=== PATIENT | male | born 2000 | race Caucasian/White ===

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

== ENCOUNTER 2022-12-06 16:09 | Inpatient (IN) ==
--- NOTE | 2022-12-06 16:39 | Emergency Department Note ---
Impression & Plan Suicidal ideations, Mood disorder ED Provider Note NAME: MARILOU NGUYEN AGE: 22 SEX: M : 2000 ARRIVES VIA: Walk-In INFORMANT: Patient ED PROVIDER(S): Niko Ramirez DO CHIEF COMPLAINT: Depression and suicidal thoughts HPI: Patient is a 22-year-old male who presents to the ER with a past medical history of depression. Prior to COVID he is to see a psychiatrist. He has not been following with them or taking anything since then. He notes that he came back to school and since June he has been spiraling. He has been feeling very depressed. He is now having suicidal thoughts which are passive. He saw 3 different ways to kill himself but notes he would not do any of them as they are too messy. He would never stab himself or shoot himself with a gun but has thought through doing all this. Denies any auditory visual hallucinations. He notes he has no desire to live anymore. PAST MEDICAL HISTORY:See Below PAST SURGICAL HISTORY:See Below FAMILY HISTORY:See Below SOCIAL HISTORY:See Below HOME MEDICATIONS:See Below ALLERGIES:See Below VITALS:See Below PHYSICAL EXAMINATION: GENERAL: Sitting up in bed, alert, well appearing, well nourished, no distress, non-toxic EYE EXAM: normal conjunctiva. OROPHARYNX: mucous membranes are moist NECK: supple, no nuchal rigidity, no adenopathy, non-tender LUNGS: Clear to auscultation. Normal chest wall mechanics HEART: no murmurs, S1 normal and S2 normal ABDOMEN: abdomen soft, non-tender, normo-active bowel sounds, no masses, no rebo und or guarding. UPPER EXTREMITIES: upper extremities are grossly normal. LOWER EXTREMITIES: No pitting edema. NEURO EXAM: Normal sensorium, cranial nerves II-XII grossly intact, normal speech, no gross weakness of arms, no gross weakness of legs. PSYCH: Admits to passive suicidal thoughts and denies any auditory visual hallucinations. MEDICAL DECISION MAKING: Patient is a 22-year-old male who presents ER for suicidal thoughts. Admits to feeling depressed and hopeless. Blood work is obtained and showed no significant leukocytosis or anemia. BMP along with LFTs bilirubin and TSH was unremarkable. UA was clean. Tox was positive for marijuana. COVID-negative. Alcohol negative. I discussed the case with her psychiatric acute care physical therapist. Patient was independently seen and evaluated by them. They agree as well as I do that this patient needs inpatient treatment. Patient was agreeable. We consulted [facility] and the liaison evaluated the patient and patient was admitted to their service for further psychiatric evaluation and treatment. ED observation: The patient was placed in observation status at 1640. Psychiatric evaluation and placement. During the time in observation, the patient was frequently reassessed and accepted to psychiatry following evaluations by her psychiatric care managers in [facility] On Final reassessment the patient patient is medically stable and the patient will be discharged at this time. A total observation time of 4 hours and 20 minutes. Triage Nursing notes reviewed. Limited review of prior medical records performed Vital Signs: reviewed and remarkable for no significant abnormalities Differential diagnosis: Mood disorder, infection, hypoglycemia, electrolyte abnormalities, cardiac sources, intracerebral event, toxicologic, trauma, neurologic, as well as other pathologies. ER treatment provided: See below Diagnostics interpreted by me include EKG and cardiac monitoring as listed below: -ECG: none -Laboratory studies:Interpreted by me as stated above in MDM and shown below. Imaging studies: Xrays: As interpreted by me:none CTs show: none Consultation(s): Discussed with our psychiatric acute care physical therapist as well as [facility]. who evaluate the patient admit them for further work-up Procedures:none Critical Care: None Past Med/Surg History Social History Smoking Status: Current every day smoker Tobacco Type: E-cigarettes / Vaping Preferred Language: British Communication Ability: Effective Range Conservationist Required: No Beliefs That Will Affect Care: None Feels Safe at Home: Yes Gender Identity: Male Assistive Devices: Glasses Allergies Allergies Allergy/AdvReac Type Severity Reaction Status Date / Time No Known Allergies Allergy Verified 12/06/22 16:33 Home Meds Home Medications Medication Instructions Recorded Confirmed buspirone 30 mg tablet 30 mg PO DAILY 12/06/22 12/06/22 venlafaxine 150 mg 150 mg PO DAILY 12/06/22 12/06/22 capsule,extended release 24 hr Results & Data (ED) Vital Signs Vital Signs - 24 hr 12/06/22 16:13 12/06/22 18:10 12/06/22 19:26 Temperature 36.3 C L Temperature Source Temporal Artery Scan Pulse Rate 78 Pulse Rate [Finger] 67 72 Pulse Rhythm Regular Pulse Strength Normal Respiratory Rate 20 14 20 Respiratory Effort / Characteristics Non-Labored Spontaneous Respiratory Depth Normal Respiratory Pattern Regular Blood Pressure 193/131 H Blood Pressure [Right Arm] 154/108 H 171/117 H Blood Pressure Mean 151 Blood Pressure Mean [Right Arm] 123 135 Blood Pressure Position Sitting Pulse Oximetry 96 97 97 Oxygen Delivery Method Room Air Room Air Room Air Sepsis Recent Fever Within 48 Hours No Sepsis New/Unexplained Change in Mental Status N/A Sepsis Action Taken by Nursing No Action Required Laboratory Data 12/06/22 17:09 12/06/22 17:09 Lab Results 12/06/22 12/06/22 12/06/22 Range/Units 16:43 16:43 16:54 WBC (4.8-10.8) K/ul RBC (4.70-6.10) M/uL Hgb (14.0-18.0) g/dl Hct (42.0-52.0) % MCV (80.0-100.0) fL MCH (25.0-34.0) pg MCHC (32.0-36.0) g/dL RDW Std Deviation (36.4-46.3) fL RDW Coeff of Negra (11.5-14.5) % Plt Count (130-400) K/uL MPV (9.4-12.4) fL Immature Gran % (Auto) % Neut % (Auto) % Lymph % (Auto) % [place] % (Auto) % Eos % (Auto) % Baso % (Auto) % Neut # (Auto) (1.40-6.50) K/uL Lymph # (Auto) (1.2-3.4) K/uL [place] # (Auto) (0.11-0.59) K/uL Eos # (Auto) (0-0.50) K/uL Baso # (Auto) (0-0.2) K/uL Immature Gran # (Auto) (0.01-0.20) K/uL Sodium (136-145) mmol/L Potassium (3.5-5.1) mmol/L Chloride (98-107) mmol/L Carbon Dioxide (21-32) mmol/L Anion Gap (3-11) BUN (6-23) mg/dl Creatinine (0.6-1.4) mg/dl Est Cr Clr Drug Dosing ml/min Est GFR ( Amer) ml/min Est GFR (Non-Af Amer) ml/min BUN/Creatinine Ratio (10-20) Glucose (70-99(Fasting)) mg/dl Calcium (8.5-10.1) mg/dl Total Bilirubin (0.2-1.0) mg/dl AST (13-39) U/L ALT (7-52) U/L Alkaline Phosphatase (34-104) U/L Total Protein (6.0-8.3) gm/dl Albumin (3.4-5.0) gm/dl Globulin (2.5-4.0) gm/dl Albumin/Globulin Ratio (0.9-2) TSH (0.300-4.500) uIu/ml Urine Color Yellow Urine Appearance Clear (Clear) Urine pH 7.0 (4.5-7.5) Ur Specific [place] 1.018 (1.000-1.030) Urine Protein Negative (Negative) Urine Glucose (UA) Negative (Negative) Urine Ketones Negative (Negative) Urine Blood Trace H (Negative) Urine Nitrite Negative (Negative) Urine Bilirubin Negative (Negative) Urine Urobilinogen Negative (Negative) Ur Leukocyte Esterase Negative (Negative) Urine WBC (Auto) 1-5 (0-5) /hpf Urine RBC (Auto) 0-4 (0-4) /hpf U Hyaline Cast (Auto) 1-5 (0-5) /lpf U Epithel Cells (Auto) 5-10 H (0-5) /lpf Urine Bacteria (Auto) Negative (Negative) Salicylates (3.0-30) mg/dl Urine Opiates Screen Neg (Neg) Ur Methadone, Qual Neg (Neg) Acetaminophen (10-30) ug/ml Urine Barbiturates Neg (Neg) Ur Phencyclidine (PCP) Neg (Neg) U Amphetamin/Meth Scrn Neg (Neg) MDMA (Ecstasy) Screen Neg (Neg) U Benzodiazepines Scrn Neg (Neg) Ur Cocaine Metabolite Neg (Neg) U Marijuana (THC) Screen Pos H (Neg) Ethyl Alcohol mg/dL (<10.0) mg/dl SARS-CoV-2, RNA, NAAT NEGATIVE (NEGATIVE) 12/06/22 12/06/22 12/06/22 Range/Units 17:09 17:09 17:09 WBC 5.84 (4.8-10.8) K/ul RBC 5.39 (4.70-6.10) M/uL Hgb 15.6 (14.0-18.0) g/dl Hct 44.7 (42.0-52.0) % MCV 82.9 (80.0-100.0) fL MCH 28.9 (25.0-34.0) pg MCHC 34.9 (32.0-36.0) g/dL RDW Std Deviation 37.5 (36.4-46.3) fL RDW Coeff of Negra 12.5 (11.5-14.5) % Plt Count 280 (130-400) K/uL MPV 9.1 L (9.4-12.4) fL Immature Gran % (Auto) 0.2 % Neut % (Auto) 65.6 % Lymph % (Auto) 25.5 % [place] % (Auto) 7.0 % Eos % (Auto) 1.4 % Baso % (Auto) 0.3 % Neut # (Auto) 3.83 (1.40-6.50) K/uL Lymph # (Auto) 1.49 (1.2-3.4) K/uL [place] # (Auto) 0.41 (0.11-0.59) K/uL Eos # (Auto) 0.08 (0-0.50) K/uL Baso # (Auto) 0.02 (0-0.2) K/uL Immature Gran # (Auto) 0.01 (0.01-0.20) K/uL Sodium 140 (136-145) mmol/L Potassium 4.4 (3.5-5.1) mmol/L Chloride 104 (98-107) mmol/L Carbon Dioxide 28 (21-32) mmol/L Anion Gap 8 (3-11) BUN 10 (6-23) mg/dl Creatinine 0.87 (0.6-1.4) mg/dl Est Cr Clr Drug Dosing 157.8 ml/min Est GFR ( Amer) 141.0 ml/min Est GFR (Non-Af Amer) 121.7 ml/min BUN/Creatinine Ratio 11.5 (10-20) Glucose 89 (70-99(Fasting)) mg/dl Calcium 9.9 (8.5-10.1) mg/dl Total Bilirubin 0.6 (0.2-1.0) mg/dl AST 31 (13-39) U/L ALT 57 H (7-52) U/L Alkaline Phosphatase 60 (34-104) U/L Total Protein 7.6 (6.0-8.3) gm/dl Albumin 4.8 (3.4-5.0) gm/dl Globulin 2.8 (2.5-4.0) gm/dl Albumin/Globulin Ratio 1.7 (0.9-2) TSH 1.358 (0.300-4.500) uIu/ml Urine Color Urine Appearance (Clear) Urine pH (4.5-7.5) Ur Specific [place] (1.000-1.030) Urine Protein (Negative) Urine Glucose (UA) (Negative) Urine Ketones (Negative) Urine Blood (Negative) Urine Nitrite (Negative) Urine Bilirubin (Negative) Urine Urobilinogen (Negative) Ur Leukocyte Esterase (Negative) Urine WBC (Auto) (0-5) /hpf Urine RBC (Auto) (0-4) /hpf U Hyaline Cast (Auto) (0-5) /lpf U Epithel Cells (Auto) (0-5) /lpf Urine Bacteria (Auto) (Negative) Salicylates (3.0-30) mg/dl Urine Opiates Screen (Neg) Ur Methadone, Qual (Neg) Acetaminophen (10-30) ug/ml Urine Barbiturates (Neg) Ur Phencyclidine (PCP) (Neg) U Amphetamin/Meth Scrn (Neg) MDMA (Ecstasy) Screen (Neg) U Benzodiazepines Scrn (Neg) Ur Cocaine Metabolite (Neg) U Marijuana (THC) Screen (Neg) Ethyl Alcohol mg/dL (<10.0) mg/dl SARS-CoV-2, RNA, NAAT (NEGATIVE) 12/06/22 12/06/22 Range/Units 17:09 17:09 WBC (4.8-10.8) K/ul RBC (4.70-6.10) M/uL Hgb (14.0-18.0) g/dl Hct (42.0-52.0) % MCV (80.0-100.0) fL MCH (25.0-34.0) pg MCHC (32.0-36.0) g/dL RDW Std Deviation (36.4-46.3) fL RDW Coeff of Negra (11.5-14.5) % Plt Count (130-400) K/uL MPV (9.4-12.4) fL Immature Gran % (Auto) % Neut % (Auto) % Lymph % (Auto) % [place] % (Auto) % Eos % (Auto) % Baso % (Auto) % Neut # (Auto) (1.40-6.50) K/uL Lymph # (Auto) (1.2-3.4) K/uL [place] # (Auto) (0.11-0.59) K/uL Eos # (Auto) (0-0.50) K/uL Baso # (Auto) (0-0.2) K/uL Immature Gran # (Auto) (0.01-0.20) K/uL Sodium (136-145) mmol/L Potassium (3.5-5.1) mmol/L Chloride (98-107) mmol/L Carbon Dioxide (21-32) mmol/L Anion Gap (3-11) BUN (6-23) mg/dl Creatinine (0.6-1.4) mg/dl Est Cr Clr Drug Dosing ml/min Est GFR ( Amer) ml/min Est GFR (Non-Af Amer) ml/min BUN/Creatinine Ratio (10-20) Glucose (70-99(Fasting)) mg/dl Calcium (8.5-10.1) mg/dl Total Bilirubin (0.2-1.0) mg/dl AST (13-39) U/L ALT (7-52) U/L Alkaline Phosphatase (34-104) U/L Total Protein (6.0-8.3) gm/dl Albumin (3.4-5.0) gm/dl Globulin (2.5-4.0) gm/dl Albumin/Globulin Ratio (0.9-2) TSH (0.300-4.500) uIu/ml Urine Color Urine Appearance (Clear) Urine pH (4.5-7.5) Ur Specific [place] (1.000-1.030) Urine Protein (Negative) Urine Glucose (UA) (Negative) Urine Ketones (Negative) Urine Blood (Negative) Urine Nitrite (Negative) Urine Bilirubin (Negative) Urine Urobilinogen (Negative) Ur Leukocyte Esterase (Negative) Urine WBC (Auto) (0-5) /hpf Urine RBC (Auto) (0-4) /hpf U Hyaline Cast (Auto) (0-5) /lpf U Epithel Cells (Auto) (0-5) /lpf Urine Bacteria (Auto) (Negative) Salicylates < 3.0 L (3.0-30) mg/dl Urine Opiates Screen (Neg) Ur Methadone, Qual (Neg) Acetaminophen < 3 L (10-30) ug/ml Urine Barbiturates (Neg) Ur Phencyclidine (PCP) (Neg) U Amphetamin/Meth Scrn (Neg) MDMA (Ecstasy) Screen (Neg) U Benzodiazepines Scrn (Neg) Ur Cocaine Metabolite (Neg) U Marijuana (THC) Screen (Neg) Ethyl Alcohol mg/dL < 10.0 (<10.0) mg/dl SARS-CoV-2, RNA, NAAT (NEGATIVE) Administered Medications Acetaminophen (Acetaminophen 325 Mg Tab) 650 mg PO Q4H PRN PRN Reason: Headache or Minor Fever Stop: 01/05/23 20:59 Last Admin: 12/06/22 21:08 Dose: 650 mg Documented By: DALIA Clonidine HCl (Clonidine Hcl 0.1 Mg Tab) 0.1 mg PO BID PRN PRN Reason: anxiety, hypertension Stop: 01/05/23 20:59 Last Admin: 12/06/22 22:06 Dose: 0.1 mg Documented By: DALIA Discontinued Medications Nicotine (Nicotine 21 Mg/24 Hr Tdsy) 21 mg TD QAM JOVAN Stop: 01/05/23 17:29 Last Admin: 12/06/22 17:22 Dose: 21 mg Documented By: BOGDAN Discharge Plan Visit Data Chief Complaint: Mental Health Evaluation Stated Complaint: MENTAL HEALTH PROBLEMS ED Provider: Niko Ramirez Discharge Problem: Suicidal ideations, Mood disorder Patient Disposition: Admitted As Inpatient Discharge Instructions Interventions: ED Discharge Assessment Last Done: 12/06/22 21:28
[2022-12-06 17:14] LABS: Appearance Urine Clear (Clear); Bacteria Urine Automated Negative (Negative); Bilirubin Urine Negative (Negative); Blood Urine Trace (Negative); Color Urine Yellow; Glucose Urine UA Negative (Negative); Ketones Urine Negative (Negative); Leukocyte Esterase Urine Negative (Negative); Nitrite Urine Negative (Negative); Protein Urine Negative (Negative); RBC Urine Automated 0-4 /hpf (0-4); Specific Gravity Urine 1.018 (1.000-1.030); Urobilinogen Urine Negative (Negative)
[2022-12-06 17:21] LABS: Basophils # (auto) 0.02 K/uL (0-0.2); Basophils % (auto) 0.3 %; Eosinophils # (auto) 0.08 K/uL (0-0.50); Eosinophils % (auto) 1.4 %; Hematocrit (blood only) 44.7 % (42.0-52.0); Hemoglobin 15.6 g/dl (14.0-18.0); Immature Granulocytes # (auto) 0.01 K/uL (0.01-0.20); Immature Granulocytes % (auto) 0.2 %; Lymphocytes # (auto) 1.49 K/uL (1.2-3.4); Lymphocytes % (auto) 25.5 %; Mean Corpuscular Hemoglobin 28.9 pg (25.0-34.0); Mean Corpuscular Hgb Conc 34.9 g/dL (32.0-36.0); Mean Corpuscular Volume 82.9 fL (80.0-100.0); Mean Platelet Volume 9.1 fL (9.4-12.4); Monocytes # (auto) 0.41 K/uL (0.11-0.59); Neutrophils # (auto) 3.83 K/uL (1.40-6.50); Neutrophils % (auto) 65.6 %; Platelet Count 280 K/uL (130-400); RDW Coefficient of Variation 12.5 % (11.5-14.5); RDW Standard Deviation 37.5 fL (36.4-46.3); Red Blood Count 5.39 M/uL (4.70-6.10); White Blood Count 5.84 K/ul (4.8-10.8)
[2022-12-06] MEDS ORDERED: NICOTINE 21 MG/24 HR TDSY TD SCH (17:30)
[2022-12-06 17:37] LABS: Amphetamines+Metham, Urine Neg (Neg); Barbiturates, Urine Neg (Neg); Benzodiazepine, Urine Neg (Neg); Cocaine, Urine Neg (Neg); MDMA (Ecstacy), Urine Neg (Neg); Methadone, Urine Neg (Neg); Opiate, Urine Neg (Neg); Phencyclidine, Urine Neg (Neg)
[2022-12-06 17:58] LABS: Albumin Globulin Ratio 1.7 (0.9-2); Albumin Level 4.8 gm/dl (3.4-5.0); BUN Creatinine Ratio 11.5 (10-20); Bilirubin,Total 0.6 mg/dl (0.2-1.0); Calcium 9.9 mg/dl (8.5-10.1); Creatinine Clr Calc Pharmacy 157.8 ml/min; Est GFR (Non-African American) 121.7 ml/min; Globulin 2.8 gm/dl (2.5-4.0); Potassium 4.4 mmol/L (3.5-5.1); Total Protein 7.6 gm/dl (6.0-8.3)
[2022-12-06 18:13] LABS: Acetaminophen < 3 ug/ml (10-30); Salicylate < 3.0 mg/dl (3.0-30)
[2022-12-06] MEDS ORDERED: ACETAMINOPHEN 325 MG TAB PO PRN (21:00)
[2022-12-06] MEDS ORDERED: SODIUM CHLORIDE 0.65% NA SOLN 45 ML (OCEAN) PRN (21:00)
[2022-12-06] MEDS ORDERED: ALUMINUM/MAGNESIUM SUSP 30 ML UDC PO PRN (21:00)
[2022-12-06] MEDS ORDERED: MAGNESIUM HYDROXIDE SUSP 30 ML UDC PO PRN (21:00)
[2022-12-06] MEDS ORDERED: BISMUTH SUBSALICYLATE LIQD 236 ML PO PRN (21:00)
[2022-12-06] MEDS ORDERED: cloNIDine HCL 0.1 MG TAB PO PRN (21:00)
[2022-12-06] MEDS ORDERED: FLUARIX QUADRIVALENT 0.5 ML SYR IM ONE (21:24)
[2022-12-06] MEDS: hydrOXYzine HCl 25 MG TAB PO PRN (22:57)
--- NOTE | 2022-12-07 08:53 | History & Physical ---
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 Diagnostically consistent with major depressive disorder, may also be component of cannabis-induced depression as well as SHREYAS with panic attacks and social anxiety. May be a component of ADHD though difficult to tease this apart from current severe symptoms of depression, anxiety and cannabis use impacts on concentration, focus and motivation. He is deemed in need of psychiatric hospitalization for diagnostic clarification, safety and stabilization, medication management and development of further coping skills. Discussed medication treatment options in detail. Discussed risks, benefits and alternatives. He would like to discontinue Buspar and Effexor XR and to start and consented to Wellbutrin for MDD as well as amlodipine for HTN. Reviewed side effects including but not limited to: elevated BP, elevated HR, lowered seizure threshold, decreased appetite, insomnia, potential for increased anxiety, confirmed no family history of sudden cardiac and counseled on black box warning of potential for emergence of or increased SI and need to let staff know should this occur or should they feel unsafe. Also discussed importance of seeking emergency care following discharge if this side effect occurs in the future. Reviewed side effecrs including but not limited to: swelling, low BP, dizziness with amlodipine. The patient's audit score and use history suggests problematic substance use. Brief intervention was offered and accepted. Intervention was greater than 5 minutes in length and included assessing readiness to quit, advice on how to reduce or abstain and to set a specific goal for this hospitalization. community action worker will also assist in anticipating barriers to reducing or abstaining from substance use and in problem-solving for solutions to those problems while arranging for referral to appropriate treatment. The patient is in contemplative stage with regards to transtheoretical model of change. The patient is advised to decrease consumption due to depressant effects and risk of interaction with prescription medications. The patient agreed to work to reduce substance use and will be provided with recovery materials to continue to educate self on how to cope with their condition without using substances. (1) MDD (major depressive disorder), recurrent episode, severe: (2) Suicidal ideations: (3) Generalized anxiety disorder with panic attacks: (4) Social anxiety disorder: (5) Cannabis use disorder, moderate, dependence: (6) Hypertension: Plan 12/07/2022: The patient was admitted to the [facility] on q15 min checks (behavioral with suicide precautions) for safety. The patient will participate in group, recreational, and milieu therapies and will be offered additional individual and family sessions as clinically appropriate. -Taper to discontinuation of Buspar, will reduce to 15mg qd -Cross-taper from Effexor XR to Wellbutrin -Start amlodipine for HTN Inventory Assets Strengths: supportive relationships, willing to get treatment Needs: safety and stabilization, medication adjustment, additional coping skills, increased outpatient services Suicide Risk Level Suicide Risk Level: High-Moderate (q15 min suicide checks) (due to severe depression with SI with possible plans prior to admission but feels safe in the hospital, able to safety contract and agrees to let nursing/staff know should they develop plan, intent or feel unable to remain safe. ) Risk Factors Assessment Male: Yes : Yes Do You Have Access To A Gun?: No Health Problems: Yes Mental Health Diagnoses: Yes Substance Use Disorders: Yes Previous Attempt: No Family History of Suicide: No (attempts but no deaths by suicide) Previous Psychiatric Hospitalization: No Protective Factors Assessment Employed: No Stable Relationships: Yes Supportive Family: Yes Psychiatric History Identifying Data MARILOU NGUYEN is a 22-year-old [employer] student who currently lives off-campus with his brother, has a history of depression, anxiety, and was admitted on 12/06/22 20:43 on a 201 voluntary commitment for depression and SI. Chief Complaint "Pretty much when I wake up I want to ". History of Present Illness He presents for psychiatric admission for worsening depression and SI with potential plans of shooting himself or cutting himself in the context of multiple psychosocial stressors including academic stress. He failed all of his courses last semester and this semester hasn't attended either of his two classes. His depression has been increasing since June and he no longer has a desire to live. He endorses depressive symptoms including tearfulness, anhedonia, decreased motivation, self-guilt, helplessness, hopelessness, decreased energy, decreased appetite 1-2 meals per day possibly lost some weight, and variable sleep difficulty sleeping at night then sleeping throughout the day. SI has been occurring since and has been intensifying to every day and lasting the majority of the day with thoughts of various plans "that pop into my head". He also endorses symptoms of anxiety including generalized worries, easily overwhelmed by work, difficulty organizing his thoughts, significant social anxiety, and panic attacks 1-2 times per month. He gets very overwhelmed by day to day tasks noting he hasn't even been able to do laundry in 3 months. Main form of coping has been smoking cannabis which helps him get out of bed, lessens the intensity of the suicidal thoughts and helps him deal with the lack of motivation. He's been considering withdrawing from school and possibly trying to do TMS in [place]. Further recent history reviewed and confirmed as documented in ED psych CM note from 12/06/2022: "The patient presents with mainly passive suicidal ideations (wishing he was ) but also states he has thoughts of ways to kill himself that are messy but he is too cowardly to do anything. He states he has had thoughts of using knives or a gun if he had one at his disposal, but denies ac cess at this time to either means or intent to act on them. He reports these feelings start as soon as he wakes up until he smokes marijuana (reports this is his only coping mechanism and if he doesnt smoke he just lies in bed all day). The patient reports he has been dealing with depression since right before [facility] and was placed on Effexor and BuSpar by his psychiatrist, but that provider is now in [place] and his meds are handled by his PCP. The patient reports he took time off from school and returned in June, but has been spiraling since then with his depression and anxiety. 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 The patient reports his anxiety is high on a daily basis (currently a 6) and has feelings of his heart racing. He reports he has problems going out in public and feels people are stalking him (denies that he feels that he is paranoid) and has less than daily panic attacks. The patient reports poor sleep (6 hours at night and napping through the day) as well as decreased appetite due to anxiety and has to force himself to eat. The patient admits to marijuana use daily but denies other drug use. The patient denies self-injurious behavior (any history), aggressive behavior (any history), history of trauma or access to weapons. The patient reports he saw [facility] in October but denies any other psychiatric providers at this time." He is currently prescribed psychiatric medications of Buspar 30mg daily (doesn't seem to be helping) and Effexor XR 150mg daily (has been taking for about 2 years, was helpful in the past, was on 225mg in the past but felt numb, sexual side effects). His blood pressure has always been high, reports even prior to starting Effexor XR, he isn't sure if it's gotten worsen since starting Effexor XR. Psychiatric ROS notable for no current nor history of symptoms of megha, psychosis, PTSD, OCD nor eating disorder. Has been self-harming starting in August by hitting his head with his hands which gives a sense of relief. He wonders about possible ADHD due to dysgraphia as a child and has noticed that his depression has worsened as his course work gets harder and he has more obligations. Past Psychiatric History Current Psychiatric Diagnosis: MDD Outpatient Services: none, [facility] crisis appointment one time in October; psychiatrist a few years ago in 2019 via telemedicine Previous Psych Admissions: none Do You Have Access To A Gun?: No History of Previous Suicide Attempt: No Past Medication Trials: maybe lexapro as a kid for anxiety Past Head Trauma/Neuro History History of Concussion/Seizure: No Allergies Allergy/AdvReac Type Severity Reaction Status Date / Time No Known Allergies Allergy Verified 12/06/22 16:33 Home Medications Medication Instructions Recorded Confirmed Type buspirone 30 mg tablet 30 mg PO DAILY 12/06/22 12/06/22 History venlafaxine 150 mg 150 mg PO DAILY 12/06/22 12/06/22 History capsule,extended release 24 hr Family History Family History of: Depression (mom-Effexor in the past, TMS helped her; maternal grandfather), Anxiety, Suicide Attempts (maternal grandfather and brother) and Bipolar (maternal grandmother) Alcohol History Hx of Alcohol Use Over the Past 12 Months: Yes (liquor, once a week, 7-9 drinks) AUDIT Total Score: 12 "I drink too much when I drink but I don't drink that often". Drinks 1-2 times per month and will consume 6-9 drinks over 5 hours. No history of blackouts, no hx of legal/social/academic consequences. Smoking Use Have You Smoked or Used Tobacco Products in the Last 30 Days: Yes tobacco type: e-cigarettes Smoking Status: Current every day smoker Substance History Hx of Prescription Med Misuse Over the Past 12 Months: No Hx of Over the Counter Med Misuse Over the Past 12 Months: No Hx of Inhalent Misuse Over the Past 12 Months: No Hx of Organic Substance Use Over the Past 12 Months: Yes (marijuana daily) Hx of Illegal Substances/Street Drug Use Over Past 12 Months: No Problems as a Result of Past Substance Use: None Identified daily cannabis use via inhalation-likes that it helps with severe depression/feelings of suicide, doesn't like that it makes it hard for him to be functional Personal History Living Arrangements: Home Childhood: From [place]. Parents are . Close with his siblings. 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, [employer] engineering) Marital Status: Single Beliefs That Will Affect Care: None Current Legal Problems: No Hx Legal Problems: No Hx Traumatic Life Events: No Patient History Medical History (Updated 12/07/22 @ 15:54 by Betty Brandon MD) Hypertension Social History Smoking Status: Current every day smoker Tobacco Type: E-cigarettes / Vaping Preferred Language: American Communication Ability: Effective Buckle Coverer Required: No Beliefs That Will Affect Care: None Feels Safe at Home: Yes Gender Identity: Male Assistive Devices: Glasses Review of Systems Review of Systems: All systems reviewed & are unremarkable except as noted in HPI & below Physical Exam Psychiatric: Orientation: alert and oriented x 3 Apperance: appropriately dressed and appropriately groomed Eye Contact: good eye contact Motor Behavior: no abnormal motor movements Speech: normal rate/rhythm/volume of speech Affect: + depressed affect and + tearful affect Mood: + depressed mood and + anxious mood Thought Process: goal directed thought process Thought Content: reality based without delusions Suicidal Thoughts: denies suicidal intent; + reports suicidal thoughts and + reports suicidal plan (none for in the hospital but various for outside the hospital) Homicidal Thoughts: denies homicidal thoughts Hallucinations: no auditory hallucinations and no visual hallucinations Cognition: recent memory grossly intact, remote memory grossly intact, attention grossly intact and language grossly intact Estimated Intelligence: consistent with education level Insight: + fair insight Judgment: + limited judgement Vital Signs (Past 24 Hours): Last Vital Signs Temp 36.3 C L 12/07/22 06:00 Pulse 93 H 12/07/22 06:00 Resp 16 12/07/22 06:00 BP 145/98 H 12/07/22 06:20 Pulse Ox 97 12/07/22 06:00 O2 Del Method 12/07/22 06:00 Exam Statement: A physical exam was performed in the ED by Dr. Ramirez for the purposes of medical clearance. I accept that physical as correct and adequate for the purposes of the inpatient physical exam. Results & Data ([facility]) Laboratory Results Laboratory Results - last 24 hr 12/06/22 12/06/22 12/06/22 16:43 16:43 16:43 WBC RBC Hgb Hct MCV MCH MCHC RDW Std Deviation RDW Coeff of Negra Plt Count MPV Immature Gran % (Auto) Neut % (Auto) Lymph % (Auto) [place] % (Auto) Eos % (Auto) Baso % (Auto) Neut # (Auto) Lymph # (Auto) [place] # (Auto) Eos # (Auto) Baso # (Auto) Immature Gran # (Auto) Sodium Potassium Chloride Carbon Dioxide Anion Gap BUN Creatinine Est Cr Clr Drug Dosing Est GFR ( Amer) Est GFR (Non-Af Amer) BUN/Creatinine Ratio Glucose Calcium Total Bilirubin AST ALT Alkaline Phosphatase Total Protein Albumin Globulin Albumin/Globulin Ratio TSH Urine Color Yellow Urine Appearance Clear Urine pH 7.0 Ur Specific [place] 1.018 Urine Protein Negative Urine Glucose (UA) Negative Urine Ketones Negative Urine Blood Trace H Urine Nitrite Negative Urine Bilirubin Negative Urine Urobilinogen Negative Ur Leukocyte Esterase Negative Urine WBC (Auto) 1-5 Urine RBC (Auto) 0-4 U Hyaline Cast (Auto) 1-5 U Epithel Cells (Auto) 5-10 H Urine Bacteria (Auto) Negative Salicylates Urine Opiates Screen Neg Ur Methadone, Qual Neg Acetaminophen Urine Barbiturates Neg Ur Phencyclidine (PCP) Neg U Amphetamin/Meth Scrn Neg MDMA (Ecstasy) Screen Neg U Benzodiazepines Scrn Neg Ur Cocaine Metabolite Neg U Marijuana (THC) Screen Pos H U Marijuana THC Carboxy Pending Drug Screen Comment Pending Ethyl Alcohol mg/dL SARS-CoV-2, RNA, NAAT 12/06/22 12/06/22 12/06/22 16:54 17:09 17:09 WBC 5.84 RBC 5.39 Hgb 15.6 Hct 44.7 MCV 82.9 MCH 28.9 MCHC 34.9 RDW Std Deviation 37.5 RDW Coeff of Negra 12.5 Plt Count 280 MPV 9.1 L Immature Gran % (Auto) 0.2 Neut % (Auto) 65.6 Lymph % (Auto) 25.5 [place] % (Auto) 7.0 Eos % (Auto) 1.4 Baso % (Auto) 0.3 Neut # (Auto) 3.83 Lymph # (Auto) 1.49 [place] # (Auto) 0.41 Eos # (Auto) 0.08 Baso # (Auto) 0.02 Immature Gran # (Auto) 0.01 Sodium 140 Potassium 4.4 Chloride 104 Carbon Dioxide 28 Anion Gap 8 BUN 10 Creatinine 0.87 Est Cr Clr Drug Dosing 157.8 Est GFR ( Amer) 141.0 Est GFR (Non-Af Amer) 121.7 BUN/Creatinine Ratio 11.5 Glucose 89 Calcium 9.9 Total Bilirubin 0.6 AST 31 ALT 57 H Alkaline Phosphatase 60 Total Protein 7.6 Albumin 4.8 Globulin 2.8 Albumin/Globulin Ratio 1.7 TSH Urine Color Urine Appearance Urine pH Ur Specific [place] Urine Protein Urine Glucose (UA) Urine Ketones Urine Blood Urine Nitrite Urine Bilirubin Urine Urobilinogen Ur Leukocyte Esterase Urine WBC (Auto) Urine RBC (Auto) U Hyaline Cast (Auto) U Epithel Cells (Auto) Urine Bacteria (Auto) Salicylates Urine Opiates Screen Ur Methadone, Qual Acetaminophen Urine Barbiturates Ur Phencyclidine (PCP) U Amphetamin/Meth Scrn MDMA (Ecstasy) Screen U Benzodiazepines Scrn Ur Cocaine Metabolite U Marijuana (THC) Screen U Marijuana THC Carboxy Drug Screen Comment Ethyl Alcohol mg/dL SARS-CoV-2, RNA, NAAT NEGATIVE 12/06/22 12/06/22 12/06/22 17:09 17:09 17:09 WBC RBC Hgb Hct MCV MCH MCHC RDW Std Deviation RDW Coeff of Negra Plt Count MPV Immature Gran % (Auto) Neut % (Auto) Lymph % (Auto) [place] % (Auto) Eos % (Auto) Baso % (Auto) Neut # (Auto) Lymph # (Auto) [place] # (Auto) Eos # (Auto) Baso # (Auto) Immature Gran # (Auto) Sodium Potassium Chloride Carbon Dioxide Anion Gap BUN Creatinine Est Cr Clr Drug Dosing Est GFR ( Amer) Est GFR (Non-Af Amer) BUN/Creatinine Ratio Glucose Calcium Total Bilirubin AST ALT Alkaline Phosphatase Total Protein Albumin Globulin Albumin/Globulin Ratio TSH 1.358 Urine Color Urine Appearance Urine pH Ur Specific [place] Urine Protein Urine Glucose (UA) Urine Ketones Urine Blood Urine Nitrite Urine Bilirubin Urine Urobilinogen Ur Leukocyte Esterase Urine WBC (Auto) Urine RBC (Auto) U Hyaline Cast (Auto) U Epithel Cells (Auto) Urine Bacteria (Auto) Salicylates < 3.0 L Urine Opiates Screen Ur Methadone, Qual Acetaminophen < 3 L Urine Barbiturates Ur Phencyclidine (PCP) U Amphetamin/Meth Scrn MDMA (Ecstasy) Screen U Benzodiazepines Scrn Ur Cocaine Metabolite U Marijuana (THC) Screen U Marijuana THC Carboxy Drug Screen Comment Ethyl Alcohol mg/dL < 10.0 SARS-CoV-2, RNA, NAAT Current Inpatient Medications Current Inpatient Medications: Current Inpatient Medications Acetaminophen (Acetaminophen 325 Mg Tab) 650 mg PO Q4H PRN PRN Reason: Headache or Minor Fever Stop: 01/05/23 20:59 Last Admin: 12/06/22 21:08 Dose: 650 mg Al Hydrox/Mg Hydrox/Simethicone (Aluminum/Magnesium Susp 30 Ml Udc) 30 ml PO Q4H PRN PRN Reason: GI Upset Stop: 01/05/23 20:59 Bismuth Subsalicylate (Bismuth Subsalicylate Liqd 236 Ml) 15 ml PO PRN PRN PRN Reason: Loose Stool Stop: 01/05/23 20:59 Clonidine HCl (Clonidine Hcl 0.1 Mg Tab) 0.1 mg PO BID PRN PRN Reason: anxiety, hypertension Stop: 01/05/23 20:59 Last Admin: 12/06/22 22:06 Dose: 0.1 mg Hydroxyzine HCl (Hydroxyzine Hcl 25 Mg Tab) 50 mg PO HSZ PRN PRN Reason: Insomnia Stop: 01/05/23 20:59 Last Admin: 12/06/22 22:57 Dose: 50 mg Hydroxyzine HCl (Hydroxyzine Hcl 25 Mg Tab) 25 mg PO Q4H PRN PRN Reason: Anxiety Stop: 01/05/23 20:59 Magnesium Hydroxide (Magnesium Hydroxide Susp 30 Ml Udc) 30 ml PO DAILY PRN PRN Reason: Constipation Stop: 01/05/23 20:59 Miscellaneous (Remove Nicoderm Patch) 1 each N/A DAILY@0859 [facility] Stop: 01/06/23 08:58 Nicotine (Nicotine 21 Mg/24 Hr Tdsy) 21 mg TD QAM [facility] Stop: 01/06/23 08:59 Nicotine Polacrilex (Nicotine Polacrilex 2 Mg Gum) 1 piece MT PRN PRN PRN Reason: nicotine cravings Stop: 01/05/23 21:16 Sodium Chloride (Sodium Chloride 0.65% Na Soln 45 Ml ([place])) 1 - 2 sprays NA PRN PRN PRN Reason: Nasal Dryness/Congestion Stop: 01/05/23 20:59
[2022-12-07] MEDS: NICOTINE 21 MG/24 HR TDSY TD SCH (09:19)
[2022-12-07] MEDS: buPROPion SR 100 MG TABCR PO SCH (10:40)
[2022-12-07] MEDS: amLODIPine BESYLATE 5 MG TAB PO SCH (10:40)
[2022-12-07] MEDS: busPIRone 15 MG TAB PO SCH (10:41)
[2022-12-07] MEDS: VENLAFAXINE HCL XR 37.5 MG CAPXR PO SCH (10:41)
[2022-12-07] MEDS: NICOTINE POLACRILEX 2 MG GUM MT PRN (11:15)
[2022-12-08] MEDS: hydrOXYzine HCl 25 MG TAB PO PRN ×2 (05:20→21:38)
--- NOTE | 2022-12-08 08:39 | Psychiatric Progress Note ---
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 Diagnostically consistent with major depressive disorder, may also be component of cannabis-induced depression as well as SHREYAS with panic attacks and social anxiety. May be a component of ADHD though difficult to tease this apart from current severe symptoms of depression, anxiety and cannabis use impacts on concentration, focus and motivation. He is deemed in need of psychiatric hospitalization for diagnostic clarification, safety and stabilization, medication management and development of further coping skills. 12/08/22: Ongoing depression, SI intensity lessening a bit. Tolerating cross- taper, will continue with this. (1) MDD (major depressive disorder), recurrent episode, severe: (2) Suicidal ideations: (3) Generalized anxiety disorder with panic attacks: (4) Social anxiety disorder: (5) Cannabis use disorder, moderate, dependence: (6) Hypertension: Plan 12/08/22: -Discontinue Buspar -Increase Wellbutrin to 150mg XL -Decrease Effexor XR to 75mg 12/07/2022: The patient was admitted to the [facility] ([facility]) on q15 min checks (behavioral with suicide precautions) for safety. The patient will participate in group, recreational, and milieu therapies and will be offered additional individual and family sessions as clinically appropriate. -Taper to discontinuation of Buspar, will reduce to 15mg qd -Cross-taper from Effexor XR to Wellbutrin -Start amlodipine for HTN Inventory Assets Strengths: supportive relationships, willing to get treatment Needs: safety and stabilization, medication adjustment, additional coping skills, increased outpatient services Suicide Risk Level Suicide Risk Level: High-Moderate (q15 min suicide checks) (due to severe depression with SI with possible plans prior to admission but feels safe in the hospital, able to safety contract and agrees to let nursing/staff know should they develop plan, intent or feel unable to remain safe. 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 Chief Complaint "I'm ok". Review of Systems Sleep Information Total Hours of Sleep: 6 Meal Information Percent Meal Consumed - Breakfast: 100 Percent Meal Consumed - Dinner: 60 Subjective Subjective Patient was seen & assessed and interval progress reviewed with treatment team kanchan godwin and social work. Attended one group yesterday but then isolative to his room and in his bed all afternoon except for dinner and then slept all night. Was up at about 5am and very tearful due to feeling trapped in the hospital and missing his dog. He accepted prn Vistaril and then went back to his room. Offered and declined option to sign 72 hour notice. Still with high blood pressure, he's asymptomatic. This afternoon mood has improved a bit, describes how he doesn't do well feeling as though he's confined but has been participating in groups. No side effects from the Wellbutrin. Noticed some hot and cold flashes that he thinks could be due to Effexor taper. He wants to continue with cross-taper. SI is lessening. Remains interested in option of doing TMS. Wants to withdrawal from [employer] for the semester. Physical Exam Psychiatric Orientation: alert and oriented x 3 Apperance: appropriately dressed and appropriately groomed Eye Contact: good eye contact Motor Behavior: no abnormal motor movements Speech: normal rate/rhythm/volume of speech Affect: + depressed affect Mood: + depressed mood Thought Process: goal directed thought process Thought Content: reality based without delusions Suicidal Thoughts: denies suicidal plan and denies suicidal intent; + reports suicidal thoughts Homicidal Thoughts: denies homicidal thoughts Hallucinations: no auditory hallucinations and no visual hallucinations Cognition: recent memory grossly intact, remote memory grossly intact, attention grossly intact and language grossly intact Estimated Intelligence: consistent with education level Insight: + fair insight Judgment: + limited judgement Vital Signs (Past 24 Hours) Last Vital Signs Temp 36.7 C 12/08/22 05:53 Pulse 78 12/08/22 05:53 Resp 18 12/08/22 05:53 BP 147/96 H 12/08/22 06:12 Pulse Ox 97 12/08/22 05:53 O2 Del Method 12/08/22 05:53 Results & Data ([facility]) Current Inpatient Medications Current Inpatient Medications: Current Inpatient Medications Acetaminophen (Acetaminophen 325 Mg Tab) 650 mg PO Q4H PRN PRN Reason: Headache or Minor Fever Stop: 01/05/23 20:59 Last Admin: 12/06/22 21:08 Dose: 650 mg Al Hydrox/Mg Hydrox/Simethicone (Aluminum/Magnesium Susp 30 Ml Udc) 30 ml PO Q4H PRN PRN Reason: GI Upset Stop: 01/05/23 20:59 Amlodipine Besylate (Amlodipine Besylate 5 Mg Tab) 5 mg PO QAM [facility] Stop: 01/06/23 10:14 Last Admin: 12/07/22 10:40 Dose: 5 mg Bismuth Subsalicylate (Bismuth Subsalicylate Liqd 236 Ml) 15 ml PO PRN PRN PRN Reason: Loose Stool Stop: 01/05/23 20:59 Bupropion HCl (Bupropion Sr 100 Mg Tabcr) 100 mg PO DAILY [facility] Stop: 01/06/23 10:14 Last Admin: 12/07/22 10:40 Dose: 100 mg Buspirone HCl (Buspirone 15 Mg Tab) 15 mg PO QAM [facility] Stop: 01/06/23 10:14 Last Admin: 12/07/22 10:41 Dose: 15 mg Hydroxyzine HCl (Hydroxyzine Hcl 25 Mg Tab) 50 mg PO HSZ PRN PRN Reason: Insomnia Stop: 01/05/23 20:59 Last Admin: 12/06/22 22:57 Dose: 50 mg Hydroxyzine HCl (Hydroxyzine Hcl 25 Mg Tab) 25 mg PO Q4H PRN PRN Reason: Anxiety Stop: 01/05/23 20:59 Last Admin: 12/08/22 05:20 Dose: 25 mg Magnesium Hydroxide (Magnesium Hydroxide Susp 30 Ml Udc) 30 ml PO DAILY PRN PRN Reason: Constipation Stop: 01/05/23 20:59 Miscellaneous (Remove Nicoderm Patch) 1 each N/A DAILY@0859 [facility] Stop: 01/06/23 08:58 Last Admin: 12/07/22 09:19 Dose: 1 each Nicotine (Nicotine 21 Mg/24 Hr Tdsy) 21 mg TD QAM [facility] Stop: 01/06/23 08:59 Last Admin: 12/07/22 09:19 Dose: Not Given Nicotine Polacrilex (Nicotine Polacrilex 2 Mg Gum) 1 piece MT PRN PRN PRN Reason: nicotine cravings Stop: 01/05/23 21:16 Last Admin: 12/07/22 11:15 Dose: 1 piece Sodium Chloride (Sodium Chloride 0.65% Na Soln 45 Ml ([place])) 1 - 2 sprays NA PRN PRN PRN Reason: Nasal Dryness/Congestion Stop: 01/05/23 20:59 Venlafaxine HCl (Venlafaxine Hcl Xr 37.5 Mg Capxr) 112.5 mg PO QAM [facility] Stop: 01/06/23 10:14 Last Admin: 12/07/22 10:41 Dose: 112.5 mg
[2022-12-08] MEDS: amLODIPine BESYLATE 5 MG TAB PO SCH (09:00)
[2022-12-08] MEDS: buPROPion SR 100 MG TABCR PO SCH (09:00)
[2022-12-08] MEDS: VENLAFAXINE HCL XR 37.5 MG CAPXR PO SCH (09:00)
[2022-12-08] MEDS: busPIRone 15 MG TAB PO SCH (09:00)
[2022-12-08] MEDS: NICOTINE 21 MG/24 HR TDSY TD SCH ×2 (09:11→17:21)
[2022-12-08] MEDS: NICOTINE POLACRILEX 2 MG GUM MT PRN (10:15)
[2022-12-09 03:23] LABS: Marijuana Quant, GCMS Urine >5000 ng/mL (<5)
[2022-12-09] MEDS: hydrOXYzine HCl 25 MG TAB PO PRN (03:37)
[2022-12-09] MEDS: buPROPion XL 150 MG TABCR PO SCH (08:35)
[2022-12-09] MEDS: amLODIPine BESYLATE 5 MG TAB PO SCH (08:35)
--- NOTE | 2022-12-09 08:38 | Psychiatric Progress Note ---
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 Diagnostically consistent with major depressive disorder, may also be component of cannabis-induced depression as well as SHREYAS with panic attacks and social anxiety. May be a component of ADHD though difficult to tease this apart from current severe symptoms of depression, anxiety and cannabis use impacts on concentration, focus and motivation. He is deemed in need of psychiatric hospitalization for diagnostic clarification, safety and stabilization, medication management and development of further coping skills. 12/09/22: Depression improving a bit, still with significant insomnia. Tolerating cross-taper to Wellbutrin. No venlafaxine withdrawal side effects today, he prefers rapid taper to discontinuation. Discussed medication treatment options in detail for insomnia. Discussed risks, benefits and alternatives. Patient would like to start and consented to trazodone for MDD and insomnia.Reviewed side effects including but not limited to: sedation, increased appetite, priapism and black box warning for increased SI. (1) MDD (major depressive disorder), recurrent episode, severe: (2) Suicidal ideations: (3) Generalized anxiety disorder with panic attacks: (4) Social anxiety disorder: (5) Cannabis use disorder, moderate, dependence: (6) Hypertension: Plan 12/09/22: -Decrease Effexor XR to 37.5mg -Start trazodone 50mg HS 12/08/22: -Discontinue Buspar -Increase Wellbutrin to 150mg XL -Decrease Effexor XR to 75mg 12/07/2022: The patient was admitted to the [facility] ([facility]) on q15 min checks (behavioral with suicide precautions) for safety. The patient will participate in group, recreational, and milieu therapies and will be offered additional individual and family sessions as clinically appropriate. -Taper to discontinuation of Buspar, will reduce to 15mg qd -Cross-taper from Effexor XR to Wellbutrin -Start amlodipine for HTN Inventory Assets Strengths: supportive relationships, willing to get treatment Needs: safety and stabilization, medication adjustment, additional coping skills, increased outpatient services Suicide Risk Level Suicide Risk Level: Moderate (q15 min suicide checks) (due to severe depression with SI with possible plans prior to admission but no with no SI, depression improving and feels safe in the hospital, able to safety contract and agrees to let nursing/staff know should they develop plan, intent or feel unable to remain safe. 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 Chief Complaint "I'm a little better". Review of Systems Sleep Information Total Hours of Sleep: 7.15 Sleep Comments: Woke up once and requested Vistaril Meal Information Percent Meal Consumed - Breakfast: 70 Percent Meal Consumed - Lunch: 75 Percent Meal Consumed - Dinner: 75 Subjective Subjective Patient was seen & assessed and interval progress reviewed with treatment team nursing and social work. Attending groups. No side effects from ongoing venlafaxine taper and increase of Wellbutrin. No SI today. Still having significant insomnia. 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 Reviewed that some treatments such as lamictal may offer benefit and possibly TMS. No hx migraines but does get headaches at times. Reviewed possibility could high BP be contributing? Physical Exam Psychiatric Orientation: alert and oriented x 3 Apperance: appropriately dressed and appropriately groomed Eye Contact: good eye contact Motor Behavior: no abnormal motor movements Speech: normal rate/rhythm/volume of speech Affect: + depressed affect Mood: + depressed mood Thought Process: goal directed thought process Thought Content: reality based without delusions Suicidal Thoughts: denies suicidal thoughts, denies suicidal plan and denies suicidal intent Homicidal Thoughts: denies homicidal thoughts Hallucinations: no auditory hallucinations and no visual hallucinations Cognition: recent memory grossly intact, remote memory grossly intact, attention grossly intact and language grossly intact Estimated Intelligence: consistent with education level Insight: + fair insight Judgment: + limited judgement Vital Signs (Past 24 Hours) Last Vital Signs Temp 36.4 C 12/09/22 06:00 Pulse 76 12/09/22 06:00 Resp 18 12/09/22 06:00 BP 148/106 H 12/09/22 06:36 Pulse Ox 98 12/09/22 06:00 O2 Del Method 12/09/22 06:00 Results & Data ([facility]) Laboratory Results Laboratory Results - last 24 hr 12/06/22 16:43 U Marijuana THC Carboxy >5000 H Drug Screen Comment SEE NOTE Current Inpatient Medications Current Inpatient Medications: Current Inpatient Medications Acetaminophen (Acetaminophen 325 Mg Tab) 650 mg PO Q4H PRN PRN Reason: Headache or Minor Fever Stop: 01/05/23 20:59 Last Admin: 12/06/22 21:08 Dose: 650 mg Al Hydrox/Mg Hydrox/Simethicone (Aluminum/Magnesium Susp 30 Ml Udc) 30 ml PO Q4H PRN PRN Reason: GI Upset Stop: 01/05/23 20:59 Amlodipine Besylate (Amlodipine Besylate 5 Mg Tab) [facility] Stop: 01/06/23 10:14 Last Admin: 12/08/22 09:00 Dose: 5 mg Bismuth Subsalicylate (Bismuth Subsalicylate Liqd 236 Ml) 15 ml PO PRN PRN PRN Reason: Loose Stool Stop: 01/05/23 20:59 Bupropion HCl (Bupropion Xl 150 Mg Tabcr) [facility] Stop: 01/08/23 08:59 Hydroxyzine HCl (Hydroxyzine Hcl 25 Mg Tab) 50 mg PO HSZ PRN PRN Reason: Insomnia Stop: 01/05/23 20:59 Last Admin: 12/08/22 21:38 Dose: 50 mg Hydroxyzine HCl (Hydroxyzine Hcl 25 Mg Tab) 25 mg PO Q4H PRN PRN Reason: Anxiety Stop: 01/05/23 20:59 Last Admin: 12/09/22 03:37 Dose: 25 mg Magnesium Hydroxide (Magnesium Hydroxide Susp 30 Ml Udc) 30 ml PO DAILY PRN PRN Reason: Constipation Stop: 01/05/23 20:59 Miscellaneous (Remove Nicoderm Patch) 1 each N/A DAILY@0859 [facility] Stop: 01/06/23 08:58 Last Admin: 12/08/22 09:10 Dose: Not Given Nicotine (Nicotine 21 Mg/24 Hr Tdsy) 21 mg TD QAM [facility] Stop: 01/06/23 08:59 Last Admin: 12/08/22 17:21 Dose: 21 mg Nicotine Polacrilex (Nicotine Polacrilex 2 Mg Gum) 1 piece MT PRN PRN PRN Reason: nicotine cravings Stop: 01/05/23 21:16 Last Admin: 12/08/22 10:15 Dose: 1 piece Sodium Chloride (Sodium Chloride 0.65% Na Soln 45 Ml ([place])) 1 - 2 sprays NA PRN PRN PRN Reason: Nasal Dryness/Congestion Stop: 01/05/23 20:59 Venlafaxine HCl (Venlafaxine Hcl Xr 75 Mg Capxr) 75 mg PO QAM [facility] Stop: 01/08/23 08:59
[2022-12-09] MEDS ORDERED: VENLAFAXINE HCL XR 75 MG CAPXR PO SCH (09:00)
[2022-12-09] MEDS: NICOTINE 21 MG/24 HR TDSY TD SCH (09:29)
[2022-12-09] MEDS ORDERED: traZODone HCL 50 MG TAB PO SCH (22:00)
--- NOTE | 2022-12-10 08:15 | Discharge Summary ---
Date of Service December 10, 2022 History of Present Illness He presents for psychiatric admission for worsening depression and SI with potential plans of shooting himself or cutting himself in the context of multiple psychosocial stressors including academic stress. He failed all of his courses last semester and this semester hasn't attended either of his two classes. His depression has been increasing since June and he no longer has a desire to live. He endorses depressive symptoms including tearfulness, anhedonia, decreased motivation, self-guilt, helplessness, hopelessness, decreased energy, decreased appetite 1-2 meals per day possibly lost some weight, and variable sleep difficulty sleeping at night then sleeping throughout the day. SI has been occurring since and has been intensifying to every day and lasting the majority of the day with thoughts of various plans "that pop into my head". He also endorses symptoms of anxiety including generalized worries, easily overwhelmed by work, difficulty organizing his thoughts, significant social anxiety, and panic attacks 1-2 times per month. He gets very overwhelmed by day to day tasks noting he hasn't even been able to do laundry in 3 months. Main form of coping has been smoking cannabis which helps him get out of bed, lessens the intensity of the suicidal thoughts and helps him deal with the lack of motivation. He's been considering withdrawing from school and possibly trying to do TMS in [place]. Further recent history reviewed and confirmed as documented in ED psych CM note from 12/06/2022: "The patient presents with mainly passive suicidal ideations (wishing he was ) but also states he has thoughts of ways to kill himself that are messy but he is too cowardly to do anything. He states he has had thoughts of using knives or a gun if he had one at his disposal, but denies access at this time to either means or intent to act on them. He reports these feelings start as soon as he wakes up until he smokes marijuana (reports this is his only coping mechanism and if he doesnt smoke he just lies in bed all day). The patient reports he has been dealing with depression since right before COVBONG and was placed on Effexor and BuSpar by his psychiatrist, but that provider is now in [place] and his meds are handled by his PCP. The patient reports he took time off from school and returned in June, but has been spiraling since then with his depression and anxiety. 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 The patient reports his anxiety is high on a daily basis (currently a 6) and has feelings of his heart racing. He reports he has problems going out in public and feels people are stalking him (denies that he feels that he is paranoid) and has less than daily panic attacks. The patient reports poor sleep (6 hours at night and napping through the day) as well as decreased appetite due to anxiety and has to force himself to eat. The patient admits to marijuana use daily but denies other drug use. The patient denies self-injurious behavior (any history), aggressive behavior (any history), history of trauma or access to weapons. The patient reports he saw [facility] in October but denies any other psychiatric providers at this time." He is currently prescribed psychiatric medications of Buspar 30mg daily (doesn't seem to be helping) and Effexor XR 150mg daily (has been taking for about 2 years, was helpful in the past, was on 225mg in the past but felt numb, sexual side effects). His blood pressure has always been high, reports even prior to starting Effexor XR, he isn't sure if it's gotten worsen since starting Effexor XR. Psychiatric ROS notable for no current nor history of symptoms of megha, psychosis, PTSD, OCD nor eating disorder. Has been self-harming starting in August by hitting his head with his hands which gives a sense of relief. He wonders about possible ADHD due to dysgraphia as a child and has noticed that his depression has worsened as his course work gets harder and he has more obligations. Physical Exam Vital Signs (Past 24 Hours) Last Vital Signs Temp 36.4 C L 12/10/22 06:34 Pulse 87 12/10/22 06:35 Resp 16 12/10/22 06:34 BP 146/105 H 12/10/22 06:35 Pulse Ox 98 12/09/22 06:00 O2 Del Method 12/09/22 06:00 See admission H&P and DOD summary. Principal Diagnosis Major Depressive Disorder Psychiatric Data See daily stay summary. In short, patient was engaged with the social/therapeutic milieu of the unit, safety was maintained and the patient was cooperative with care. Medication changes included discontinuation of Buspar, cross-taper from venlafaxine ER to Wellbutrin XL and initiation of trazodone for insomnia and they tolerated this well. He is planning to consider TMS after discharge for further treatment for depression. His blood pressure was significantly elevated on presentation to the ED (193/131) and remained high during psychiatric admission so he was started on amlodipine 5mg daily with some improvement. He was encouraged to continue to follow-up with his primary care provider regarding his blood pressure. A family session was held and safety plan was completed prior to discharge. He actively and insightfully participated in safety planning and in discussions about ways to seek support and recognizing warning signs and utilizing coping skills. Reviewed mobile apps that could be used for additional ways to have their safety plan and contacts easily available should thoughts of SI re-emerge in the future. Reviewed importance of seeking emergency care should SI intensify, worsen or should they feel unsafe in the future which they agree to do. On the day of discharge he stated his mood was "good" and remained future- oriented including seeing his dog, seeing his dad and brother and engaging in aftercare appointments for psychiatry, [employer] student care and advocacy, and option to start TMS. Day of Discharge Assessment Today the patient voices readiness for discharge. They note improvement in mood and anxiety. They deny thoughts of harm to self or others. Thoughts are organi zed and they are clinically improved from admission. There is no evidence of psychosis. They improved in the hospital with support and medication adjustments. They agree to take medications as prescribed and keep follow-up appointments. At the time of the discharge they are deemed to be stable and appropriate for outpatient level of care. They are not deemed to be at imminent risk of harm to self or others. They are aware of emergency and crisis services. Knows to call 911 or go to nearest emergency care center if in a crisis which cannot be handled as an outpatient. Transition of Care Transition Of Care Record: was reviewed with the patient Advance Directives Advance Directives Information Provided: Yes Advance Directives: No Mental Health Advance Directive: No Advance Directives on File: No Living Will: No Power of [employer] Programmer: No Advance Directives Reason:: Declines as Mental Health Visit. Suicide Risk Level Suicide Risk Level Comments: Acute risk is low given improvement in mood and denial of SI, lack of access to lethal means, plan to reduce substance use, improvement in sleep, hopefulness. Chronic risk is low to moderate given a few non-modifiable risk factors: psychiatric co-morbid diagnoses, hx self-harm, but also with protective factors including: good social support, sense of responsibility to family and social supports, outpatient care in place, positive coping skills, positive problem solving, capacity to establish therapeutic alliance, willingness to engage with treatment, capacity for self-observation. Counseled on ways to reduce acute and chronic risk including engaging with outpatient providers, using safety plan if needed, utilizing supports, reducing substance use, taking medication, and using coping skills. Modifiable risk factors of SI and depression were addressed during hospitalization through development of new coping skills, family meeting, safety planning, and medication adjustments. Risk Factors Assessment Male: Yes : Yes Do You Have Access To A Gun?: No Health Problems: Yes Mental Health Diagnoses: Yes Substance Use Disorders: Yes Previous Attempt: No Family History of Suicide: No (attempts but no deaths by suicide) Previous Psychiatric Hospitalization: No Hopelessness: No Protective Factors Assessment Employed: No Stable Relationships: Yes Supportive Family: Yes Tobacco Cessation at Discharge Tobacco Cessation Medication Prescribed at Discharge: Offered & Prescribed Discharge Data Lab Results 12/06/22 12/06/22 12/06/22 16:43 16:43 16:43 WBC RBC Hgb Hct MCV MCH MCHC RDW Std Deviation RDW Coeff of Negra Plt Count MPV Immature Gran % (Auto) Neut % (Auto) Lymph % (Auto) Gila % (Auto) Eos % (Auto) Baso % (Auto) Neut # (Auto) Lymph # (Auto) Gila # (Auto) Eos # (Auto) Baso # (Auto) Immature Gran # (Auto) Sodium Potassium Chloride Carbon Dioxide Anion Gap BUN Creatinine Est Cr Clr Drug Dosing Est GFR ( Amer) Est GFR (Non-Af Amer) BUN/Creatinine Ratio Glucose Calcium Total Bilirubin AST ALT Alkaline Phosphatase Total Protein Albumin Globulin Albumin/Globulin Ratio TSH Urine Color Yellow Urine Appearance Clear Urine pH 7.0 Ur Specific [place] 1.018 Urine Protein Negative Urine Glucose (UA) Negative Urine Ketones Negative Urine Blood Trace H Urine Nitrite Negative Urine Bilirubin Negative Urine Urobilinogen Negative Ur Leukocyte Esterase Negative Urine WBC (Auto) 1-5 Urine RBC (Auto) 0-4 U Hyaline Cast (Auto) 1-5 U Epithel Cells (Auto) 5-10 H Urine Bacteria (Auto) Negative Salicylates Urine Opiates Screen Neg Ur Methadone, Qual Neg Acetaminophen Urine Barbiturates Neg Ur Phencyclidine (PCP) Neg U Amphetamin/Meth Scrn Neg MDMA (Ecstasy) Screen Neg U Benzodiazepines Scrn Neg Ur Cocaine Metabolite Neg U Marijuana (THC) Screen Pos H U Marijuana THC Carboxy >5000 H Drug Screen Comment SEE NOTE Ethyl Alcohol mg/dL SARS-CoV-2, RNA, NAAT 12/06/22 12/06/22 12/06/22 16:54 17:09 17:09 WBC 5.84 RBC 5.39 Hgb 15.6 Hct 44.7 MCV 82.9 MCH 28.9 MCHC 34.9 RDW Std Deviation 37.5 RDW Coeff of Negra 12.5 Plt Count 280 MPV 9.1 L Immature Gran % (Auto) 0.2 Neut % (Auto) 65.6 Lymph % (Auto) 25.5 Gila % (Auto) 7.0 Eos % (Auto) 1.4 Baso % (Auto) 0.3 Neut # (Auto) 3.83 Lymph # (Auto) 1.49 Gila # (Auto) 0.41 Eos # (Auto) 0.08 Baso # (Auto) 0.02 Immature Gran # (Auto) 0.01 Sodium 140 Potassium 4.4 Chloride 104 Carbon Dioxide 28 Anion Gap 8 BUN 10 Creatinine 0.87 Est Cr Clr Drug Dosing 157.8 Est GFR ( Amer) 141.0 Est GFR (Non-Af Amer) 121.7 BUN/Creatinine Ratio 11.5 Glucose 89 Calcium 9.9 Total Bilirubin 0.6 AST 31 ALT 57 H Alkaline Phosphatase 60 Total Protein 7.6 Albumin 4.8 Globulin 2.8 Albumin/Globulin Ratio 1.7 TSH Urine Color Urine Appearance Urine pH Ur Specific [place] Urine Protein Urine Glucose (UA) Urine Ketones Urine Blood Urine Nitrite Urine Bilirubin Urine Urobilinogen Ur Leukocyte Esterase Urine WBC (Auto) Urine RBC (Auto) U Hyaline Cast (Auto) U Epithel Cells (Auto) Urine Bacteria (Auto) Salicylates Urine Opiates Screen Ur Methadone, Qual Acetaminophen Urine Barbiturates Ur Phencyclidine (PCP) U Amphetamin/Meth Scrn MDMA (Ecstasy) Screen U Benzodiazepines Scrn Ur Cocaine Metabolite U Marijuana (THC) Screen U Marijuana THC Carboxy Drug Screen Comment Ethyl Alcohol mg/dL SARS-CoV-2, RNA, NAAT NEGATIVE 12/06/22 12/06/22 12/06/22 17:09 17:09 17:09 WBC RBC Hgb Hct MCV MCH MCHC RDW Std Deviation RDW Coeff of Negra Plt Count MPV Immature Gran % (Auto) Neut % (Auto) Lymph % (Auto) Gila % (Auto) Eos % (Auto) Baso % (Auto) Neut # (Auto) Lymph # (Auto) Gila # (Auto) Eos # (Auto) Baso # (Auto) Immature Gran # (Auto) Sodium Potassium Chloride Carbon Dioxide Anion Gap BUN Creatinine Est Cr Clr Drug Dosing Est GFR ( Amer) Est GFR (Non-Af Amer) BUN/Creatinine Ratio Glucose Calcium Total Bilirubin AST ALT Alkaline Phosphatase Total Protein Albumin Globulin Albumin/Globulin Ratio TSH 1.358 Urine Color Urine Appearance Urine pH Ur Specific [place] Urine Protein Urine Glucose (UA) Urine Ketones Urine Blood Urine Nitrite Urine Bilirubin Urine Urobilinogen Ur Leukocyte Esterase Urine WBC (Auto) Urine RBC (Auto) U Hyaline Cast (Auto) U Epithel Cells (Auto) Urine Bacteria (Auto) Salicylates < 3.0 L Urine Opiates Screen Ur Methadone, Qual Acetaminophen < 3 L Urine Barbiturates Ur Phencyclidine (PCP) U Amphetamin/Meth Scrn MDMA (Ecstasy) Screen U Benzodiazepines Scrn Ur Cocaine Metabolite U Marijuana (THC) Screen U Marijuana THC Carboxy Drug Screen Comment Ethyl Alcohol mg/dL < 10.0 SARS-CoV-2, RNA, NAAT Hospital Course (1) MDD (major depressive disorder), recurrent episode, severe: (2) Suicidal ideations: (3) Generalized anxiety disorder with panic attacks: (4) Social anxiety disorder: (5) Cannabis use disorder, moderate, dependence: (6) Hypertension: Plan 12/09/22: -Decrease Effexor XR to 37.5mg -Start trazodone 50mg HS 12/08/22: -Discontinue Buspar -Increase Wellbutrin to 150mg XL -Decrease Effexor XR to 75mg 12/07/2022: The patient was admitted to the [facility] ([facility]) on q15 min checks (behavioral with suicide precautions) for safety. The patient will participate in group, recreational, and milieu therapies and will be offered additional individual and family sessions as clinically appropriate. -Taper to discontinuation of Buspar, will reduce to 15mg qd -Cross-taper from Effexor XR to Wellbutrin -Start amlodipine for HTN Mental Health & Subst Abuse Tx Psychiatrist Name of Psychiatrist: Dieter Godinez MD Psychiatrist's Psychiatric Appointment Comment: telehealth Post Discharge Appointments Primary Care Physician Name Of Family Doctor/PCP: [facility] PCP Primary Care Provider Appointment Comment: [address], [address], [place] [address] Smoking Cessation Counseling Tobacco Cessation Medication Prescribed at Discharge: Offered & Prescribed Other #1: Name of Aftercare Appointment: Student Care and Advocacy- Elena Magallon Phone Number of Aftercare Appointment: [phone] Date of Aftercare Appointment: 12/12/22 Time of Aftercare Appointment: 1pm Aftercare Appointment Comment: link will be sent to [employer] email #2: [facility] Phone Number of Aftercare Appointment: [phone] Aftercare Appointment Comment: [address], [address], [place] [address] Contact Information Discharge Discharge Plan Discharge Items Patient Disposition: Home - Self-Care Reason For Visit: MDD Discharge Diagnosis: Major Depressive Disorder Activity: Resume your previous activity Non-emergency contact: Primary Care Provider and Psychiatrist Call non-emergency contact if: you have any medication questions and your symptoms worsen Follow-up/Referrals: PCP,NO [Primary Care Provider] - Diet: Regular Addtl Attending Provider Instructions: Optional mobile apps we discussed: -Suicide safety plan -Virtual Hope Box -Panic [employer] SPECIAL CARE INSTRUCTIONS: 1. Follow through with your scheduled aftercare appointments. If unable to keep an appointment, please call to reschedule. 2. Take your medication only as prescribed. Medication should not be changed or stopped without the approval of your doctor. In the event of worsening symptoms or concerns about side effects, contact your doctor immediately. 3. Utilize new healthy coping skills, anger management skills, and stress management skills learned during your hospitalization. Journal feelings and process them with a support person. Identify stressors or situations that may result in relapse, deterioration or inappropriate behaviors and develop a plan to deal with those issues. 4. If your coping skills are ineffective and you are in crisis, contact your outpatient providers for direction. If unable to reach your providers, please call the [facility] CRISIS LINE AT , go to the [facility] walk-in center at [address], [address], [place], or go to the closest Emergency Room. 5. Avoid alcohol and un-prescribed drugs. 6. You have been provided with the Mental Health Advance Directives Pamphlet for your review. 7. Your condition is stable for discharge to outpatient level of care, but recovery is an ongoing process. Ifthoughts to harm yourself or others return, follow the safety plan developed during your stay. Planning for a safe return home includes securing weapons. Our treatment team recommends weaponsbe removed from the home until your outpatient provider reassesses your progress. In rare cases where the items themselvescannot be removed, guns and ammunitionshould be secured separatelyand keys stored by a reliable personoutside of the home. If you were admitted on an involuntary commitment, the police or other legal authorities may be involved in this process. AFTERCARE APPOINTMENTS: * Please call your insurance company prior to your scheduled appointment to confirm your aftercare providers are covered. Take your insurance information to your appointments. WHO TO CALL AND WHEN: Medical Emergencies: For questions or emergencies related to your hospital stay, please contact the Inpatient Behavioral Health Unit at [phone]. A liquor grinding mill operator is on-call 26/05 for the Behavioral Health Unit for emergencies. [place] Crisis Line: [phone]. At any time you feel your situation is an emergency, you may also call 911 immediately. Pending Studies at Discharge: No Stand-Alone Forms: [facility], Smoking Cessation Medications and DC Order Prescriptions: New nicotine [Nicoderm CQ] 21 mg/24 hr Patch 24 Hour 21 mg transdermal QAM 30 Days Qty: 30 0RF amlodipine [Norvasc] 5 mg Tablet 5 mg PO QAM 30 Days Qty: 30 0RF bupropion HCl 150 mg Tablet Extended Release 24 Hr 150 mg PO QAM 30 Days Qty: 30 0RF trazodone 100 mg Tablet 100 mg PO HS 30 Days Qty: 30 0RF Discontinued venlafaxine 150 mg capsule,extended release 24hr 150 mg PO DAILY buspirone 30 mg tablet 30 mg PO DAILY Discharge Orders: Discharge Order (Routine); Ordered 12/10/22 Ordered By: Betty Brandon Admission Data Admit Date/Time: 12/06/22 20:43 Attending Provider: Betty Brandon Admit Provider: Betty Brandon Primary Care Provider: PCP,NO Other Interventions: Discharge Summary Assessment (RN) Last Done: 12/10/22 09:52 PSY Interdisciplinary Discharge Planning Last Done: 12/10/22 10:13 Coding Level of Care Code 85712 D/C day mgmt > 30 min Diagnoses MDD (major depressive disorder), recurrent episode, severe F33.2 Suicidal ideations R45.851 Generalized anxiety disorder with panic attacks F41.1; F41.0 Social anxiety disorder F40.10 Cannabis use disorder, moderate, dependence F12.20 Hypertension I10 Time Spent (min) 60
[2022-12-10] MEDS ORDERED: VENLAFAXINE HCL XR 37.5 MG CAPXR PO SCH (09:00)
[2022-12-10] MEDS: NICOTINE 21 MG/24 HR TDSY TD SCH (09:13)
[2022-12-10] MEDS: amLODIPine BESYLATE 5 MG TAB PO SCH (09:14)
[2022-12-10] MEDS: buPROPion XL 150 MG TABCR PO SCH (09:14)
[2022-12-10] MEDS ORDERED: traZODone HCL 100 MG TAB PO SCH (22:00)
== END 2022-12-10 11:02 | disposition home or self-care (01) | DRG 885 ==
LOC: ED 16:09 → 3S 20:43